=== PATIENT | male | born 1990 | race Asian ===

== ENCOUNTER 2019-10-02 19:02 | Emergency (ER) | payer OTHER ==
[~2019-10-02] VITALS: Ht 172.7 cm; Wt 77.2 kg
[2019-10-02] MEDS ORDERED: TETanus/Pertussis (Acell)/Diphther VAC/PF (Tdap-Adult) 0.5ml syringe IMVAC ONE (20:25)
[2019-10-02] MEDS ORDERED: CEPH250T PO (20:25)
[2019-10-02 20:45] VITALS: BP 150/90
== END 2019-10-02 20:51 | disposition home or self-care (01) ==
LOC: ER 19:03
DX: S61.531A Puncture wound without foreign body of right wrist, initial encounter (principal); Z79.2 Long term (current) use of antibiotics; W26.9XXA Contact with unspecified sharp object(s), initial encounter; Y93.89 Activity, other specified; Y92.89 Other specified places as the place of occurrence of the external cause; Y99.0 Civilian activity done for income or pay
CPT/HCPCS: 90471; 99283